=== PATIENT | female | born 2000 | race African-American/Black ===

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

== ENCOUNTER 2023-12-24 03:13 | Emergency (ER) | payer MEDICAID ==
[~2023-12-24] VITALS: Ht 165.1 cm; Wt 50.0 kg
[2023-12-24 03:20] VITALS: BP 98/67; PULSE 96; RESP 14; TEMP 98.6; O2SAT 100
[2023-12-24] MEDS ORDERED: SODIUM CHLORIDE 0.9% 1,000 ML IV ONE (03:30)
== END 2023-12-24 03:50 | disposition left against medical advice (07) ==
LOC: ER 03:26
DX: R07.89 Other chest pain (principal); J45.909 Unspecified asthma, uncomplicated; D64.9 Anemia, unspecified; Z98.890 Other specified postprocedural states
CPT/HCPCS: 93005; 99283; J7030; Z7610